=== PATIENT | female | born 1995 | race Two or more races ===

== ENCOUNTER 2020-06-08 20:13 | Emergency (ER) | payer SELFPAY ==
--- NOTE | 2020-06-08 22:21 | RADIOLOGY REPORT (SQ) ---
US PELVIS HISTORY: Vaginal bleeding. Early . COMPARISON: None. TECHNIQUE: Grayscale, color Doppler, and spectral Doppler ultrasound images of the pelvis were obtained. FINDINGS: The uterus is anteverted and measures 8.7 x 4.9 x 3.5 cm. There is no intrauterine gestational sac. The cervix is closed and measures 2.5 cm. The endometrium is 3 mm in thickness. Both ovaries are normal in size and contain normal follicles, with the right ovary measuring 2.7 x 2.1 cm and the left ovary measuring 3.7 x 2.9 cm. Normal color Doppler blood flow is seen in both ovaries. No free fluid. IMPRESSION: 1. No intrauterine is seen. Correlate with beta hCG values and consider short-term follow-up ultrasound imaging. 2. Normal ovaries.
[2020-06-08 23:09] LABS: ABSOLUTE EOSINOPHILS # (AUTO) 0.5 10^3/uL (0.0-0.6); ABSOLUTE LYMPHOCYTES (AUTO) 2.9 10^3/uL (0.5-4.7); ABSOLUTE MONOCYTES (AUTO) 0.7 10^3/uL (0.1-1.4); ABSOLUTE NEUT (AUTO) 6.5 10^3/uL (1.7-8.2); BASOPHILS % (AUTO) 0.3 % (0-2); EOSINOPHILS % (AUTO) 4.5 % (0-6); HEMATOCRIT 38.5 % (36.0-47.0); HEMOGLOBIN 13.1 g/dL (12.0-15.5); LYMPHOCYTES % (AUTO) 27.6 % (13-45); MEAN CORPUSCULAR HGB CONC 34.1 g/dL (32.0-36.0); MEAN CORPUSCULAR VOLUME 94 fl (80-97); MONOCYTES % (AUTO) 6.2 % (3-13); PLATELET COUNT 215 10^3/uL (150-450); RED CELL DISTRIBUTION WIDTH 12.6 % (11.5-14.0); SEGMENTED NEUTROPHILS % (AUTO) 61.4 % (42-78); TOTAL CELLS COUNTED % (AUTO) 100 %; WHITE BLOOD COUNT 10.7 10^3/uL (4.0-10.5)
[2020-06-08 23:27] LABS: ALKALINE PHOSPHATASE 55 U/L (38-126); ANION GAP 5 (5-19); ASPARTATE AMINO TRANSFERASE 24 U/L (14-36); BILIRUBIN,DIRECT 0.3 mg/dL (0.0-0.4); BILIRUBIN,TOTAL 0.4 mg/dL (0.2-1.3); BLOOD UREA NITROGEN 18 mg/dL (7-20); CALCIUM 9.3 mg/dL (8.4-10.2); CARBON DIOXIDE 28 mmol/L (22-30); CHLORIDE 107 mmol/L (98-107); GLUCOSE 102 mg/dL (75-110); POTASSIUM 3.7 mmol/L (3.6-5.0); TOTAL PROTEIN 6.9 g/dL (6.3-8.2)
[2020-06-09 00:26] LABS: APPEARANCE,URINE CLOUDY; BILIRUBIN,URINE NEGATIVE (NEGATIVE); COLOR,URINE YELLOW; GLUCOSE, URINE NEGATIVE (NEGATIVE); KETONES,URINE NEGATIVE (NEGATIVE); LEUKOCYTE ESTERASE,URINE LARGE (NEGATIVE); NITRITE,URINE NEGATIVE (NEGATIVE); PROTEIN,URINE 100 mg/dL (NEGATIVE); URINE SPECIFIC GRAVITY 1.027
[2020-06-09 00:56] VITALS: BP 117/75
--- NOTE | 2020-06-09 01:01 | ER Document Report ---
ED General - General Chief Complaint: Vaginal Bleeding Stated Complaint: VAGINAL BLEEDING/ Time Seen by Provider: 06/08/20 20:55 Mode of Arrival: Ambulatory Information source: Patient Notes: Patient is a 24-year-old female coming in today for vaginal bleeding. She had a positive test on Sunday. On Sunday she started having vaginal bleeding. Then Sunday had bleeding and today has almost stopped bleeding. No pain. No fevers or chills. No vomiting. Past Medical History - General Information source: Patient - Social History Smoking Status: Never Smoker Chew tobacco use (# tins/day): No Frequency of alcohol use: Rare Drug Abuse: None Family History: Reviewed & Not Pertinent Patient has homicidal ideation: No Review of Systems - Review of Systems Notes: Constitutional: No fevers. No chills. EENT: No eye redness. No eye pain. No ear pain. No sore throat. Cardiovascular: No chest pain. No palpitations. Respiratory: No cough. No shortness of breath. No respiratory distress. Gastrointestinal: No abdominal pain. No nausea, vomiting, or diarrhea. Genitourinary: Positive vaginal bleeding Musculoskeletal: Atraumatic. No swelling. No deformities. Skin: No rash or lesions. Lymphatic: No swollen lymph nodes. Neurologic: No headache. No syncope. Psychiatric: No suicidal or homicidal ideation. Physical Exam - Vital signs Vitals: Temp Pulse Resp BP Pulse Ox 98.2 F 84 16 111/66 99 06/08/20 20:17 06/08/20 20:17 06/08/20 20:17 06/08/20 20:17 06/08/20 20:17 - Notes Notes: General: Well-developed, well-nourished. In no acute distress. Non-toxic appearing. Cardiac: Well-perfused. Regular rate and rhythm. No murmurs, rubs, or gallops. Pulmonary: No respiratory distress. No cyanosis. Bilateral lung fiels are clear to auscultation. Abdominal: Non-distended. Non-rigid. Bowels sounds are present in all four quadrants. No guarding or rebound. HEENT: Head is atraumatic. Conjunctivae not reddened. No tearing. PERRL. EOMI. Orbits atraumatic. No periorbital swelling or erythema. Oropharynx is without erythema, swelling, or exudates. Neck: Supple. No adenopathy. No meningismus. Dermatologic: Warm with good turgor. No rash. Atraumatic. Chest: Atraumatic. No chest wall tenderness to palpation. Musculoskeletal: Moves all extremities well. No range of motion deficits. no muscular or joint tenderness. No paraspinal muscle tenderness. no midline spinal tenderness or step-off. Genitourinary: Examination deferred Neurologic: No gross neurologic deficits. Psychiatric: Normal mood. Course - Re-evaluation Re-evalutation: 06/09/20 00:59 Patient is O+ therefore no need for RhoGam. Beta hCG is negative here. No evidence of intrauterine . Patient states that she is barely having any bleeding at this point. Sounds like a spontaneous . Patient is content with the information given. Will discharge - Vital Signs Vital signs: Temp Pulse Resp BP Pulse Ox 97.9 F 68 16 117/75 100 06/09/20 00:55 06/09/20 00:55 06/09/20 00:55 06/09/20 00:55 06/09/20 00:55 - Laboratory Result Diagrams: 06/08/20 22:54 06/08/20 22:54 Laboratory results interpreted by me: 06/08/20 06/08/20 22:54 23:24 WBC 10.7 H Urine Protein 100 H Urine Blood MODERATE H Urine Urobilinogen 2.0 H Ur Leukocyte Esterase LARGE H Discharge - Discharge Clinical Impression: Spontaneous miscarriage Condition: Good Disposition: HOME, SELF-CARE Instructions: Miscarriage ([facility]) Referrals: EDWAR SHAH MD [ACTIVE STAFF] - Follow up as needed
== END 2020-06-09 01:25 | disposition home or self-care (01) ==
LOC: ER 20:13
DX: O03.9 Complete or unspecified spontaneous abortion without complication (principal)
CPT/HCPCS: 36415; 76817; 80053; 81001; 84702; 85025; 86900; 86901; 93976; 99284

== ENCOUNTER 2020-10-12 08:13 | Emergency (ER) | payer BC, MEDICAID ==
--- NOTE | 2020-10-12 10:09 | RADIOLOGY REPORT (SQ) ---
EXAM DESCRIPTION: U/S OB TRANSVAGINAL W/O DOP IMAGES COMPLETED DATE/TIME: 10/12/2020 9:58 am REASON FOR STUDY: preg/bleeding COMPARISON: None. TECHNIQUE: Transvaginal static and realtime grayscale images acquired of the pelvis. Additional angela cted spectral and color Doppler images recorded. All images stored on PACs. CLINICAL AGE: 5 week 0 day. BHCG: Not yet obtained. LIMITATIONS: None. FINDINGS: UTERUS: No visualized intrauterine . There are small fluid collections in the en dometrial cavity. Cannot exclude early gestational sac. RIGHT ADNEXA: Normal ovary with normal vascular flow. No adnexal free fluid. 1.5 cm cyst. LEFT ADNEXA: Normal ovary with normal vascular flow. No adnexal free fluid. No adnexal masses. FREE FLUID: None. OTHER: No other significant finding. IMPRESSION: NO VISUALIZED INTRA- OR EXTRAUTERINE . bHCG LEVEL NOT AVAILABLE FOR CORRELATION WITH US FINDINGS. ECTOPIC CANNOT BE EXCLUDED. FOLLOW-UP ULTRASOUND AND SERIAL BHCG LEVELS STRONGLY RECOMMENDED TO ACCURATELY ASSESS STATU S. TECHNICAL DOCUMENTATION: JOB ID: [id number] [employer]- All Rights Reserved Reading location - IP/workstation name: [email or web address]
[2020-10-12 10:33] LABS: ABSOLUTE EOSINOPHILS # (AUTO) 0.4 10^3/uL (0.0-0.6); ABSOLUTE MONOCYTES (AUTO) 0.4 10^3/uL (0.1-1.4); ABSOLUTE NEUT (AUTO) 4.1 10^3/uL (1.7-8.2); BASOPHILS % (AUTO) 0.7 % (0-2); HEMOGLOBIN 13.1 g/dL (12.0-15.5); MEAN CORPUSCULAR HEMOGLOBIN 30.4 pg (27.0-33.4); MEAN CORPUSCULAR HGB CONC 33.5 g/dL (32.0-36.0); MEAN CORPUSCULAR VOLUME 91 fl (80-97); MONOCYTES % (AUTO) 6.2 % (3-13); PLATELET COUNT 238 10^3/uL (150-450); RED CELL DISTRIBUTION WIDTH 12.6 % (11.5-14.0); SEGMENTED NEUTROPHILS % (AUTO) 58.1 % (42-78); TOTAL CELLS COUNTED % (AUTO) 100 %
[2020-10-12 10:54] LABS: ALBUMIN 3.9 g/dL (3.5-5.0); ALKALINE PHOSPHATASE 54 U/L (38-126); ANION GAP 5 (5-19); ASPARTATE AMINO TRANSFERASE 37 U/L (14-36); BILIRUBIN,DIRECT 0.1 mg/dL (0.0-0.4); BILIRUBIN,TOTAL 0.6 mg/dL (0.2-1.3); BLOOD UREA NITROGEN 14 mg/dL (7-20); CALCIUM 9.3 mg/dL (8.4-10.2); CARBON DIOXIDE 24 mmol/L (22-30); CHLORIDE 107 mmol/L (98-107); GLUCOSE 89 mg/dL (75-110); POTASSIUM 4.5 mmol/L (3.6-5.0)
--- NOTE | 2020-10-12 11:43 | ER Document Report ---
ED General - General Chief Complaint: Vaginal Bleeding Stated Complaint: VAGINAL BLEEDING/ 5 WEELS PREG Time Seen by Provider: 10/12/20 09:00 Primary Care Provider: KEILA WEI [Primary Care Provider] - Follow up as needed Mode of Arrival: Ambulatory Information source: Patient - [facility] Notes: This patient is a G3, P1 who presents with vaginal bleeding. She states it is some spotting that she just noticed earlier this morning. States she has had some cramping in the lower back but otherwise no pain. She states that she is unsure exactly how far along she is in the . With think she is about 6 weeks. Patient denies any vomiting. She states the pain in the lower back is mild. It is cramping in sensation. Nothing makes it better or worse. No significant radiation of this pain. - Related Data Allergies/Adverse Reactions: No Known Allergies Allergy (Verified 10/12/20 08:34) Past Medical History - General Information source: Patient - Social History Smoking Status: Never Smoker Frequency of alcohol use: Occasional Drug Abuse: None Family History: Reviewed & Not Pertinent Review of Systems - Review of Systems Constitutional: denies: Chills, Fever Cardiovascular: denies: Chest pain, Palpitations Respiratory: denies: Cough, Short of breath -: Yes All other systems reviewed and negative Physical Exam - Vital signs Vitals: Temp Pulse Resp BP Pulse Ox 98.2 F 81 15 106/60 98 10/12/20 08:33 10/12/20 08:33 10/12/20 08:33 10/12/20 08:33 10/12/20 08:33 Interpretation: Normal - General General appearance: Appears well, Alert - HEENT Head: Normocephalic, Atraumatic Eyes: Normal Pupils: PERRL - Respiratory Respiratory status: No respiratory distress Chest status: Nontender Breath sounds: Normal Chest palpation: Normal - Cardiovascular Rhythm: Regular Heart sounds: Normal auscultation Murmur: No - Abdominal Inspection: Normal Distension: No distension Bowel sounds: Normal Tenderness: Nontender Organomegaly: No organomegaly - Back Back: Normal, Nontender - Extremities General upper extremity: Normal inspection, Nontender, Normal color, Normal ROM, Normal temperature General lower extremity: Normal inspection, Nontender, Normal color, Normal ROM, Normal temperature, Normal weight bearing. No: Flako's sign - Neurological Neuro grossly intact: Yes Cognition: Normal Orientation: AAOx4 Radha Coma Scale Eye Opening: Spontaneous Radha Coma Scale Verbal: Oriented Cheney Coma Scale Motor: Obeys Commands Radha Coma Scale Total: 15 Speech: Normal Motor strength normal: LUE, RUE, LLE, RLE Sensory: Normal - Psychological Associated symptoms: Normal affect, Normal mood - Skin Skin Temperature: Warm Skin Moisture: Dry Skin Color: Normal Course - Re-evaluation Re-evalutation: 10/12/20 11:42 Patient presents with vaginal spotting. She has a positive test with a beta of 869. She has no surgical abdominal signs and a nontender exam. She will be referred to OB in 2 days with a repeat beta. - Vital Signs Vital signs: Temp Pulse Resp BP Pulse Ox 98.2 F 81 15 106/60 98 10/12/20 08:33 10/12/20 08:33 10/12/20 08:33 10/12/20 08:33 10/12/20 08:33 - Laboratory Results Result Diagrams: 10/12/20 10:04 10/12/20 10:04 Laboratory Results Interpreted: 10/12/20 10:04 Sodium 136.4 L AST 37 H Beta HCG, Quant 894.09 H Critical Laboratory Results Reviewed: No Critical Results - Radiology Results Critical Radiology Results Reviewed: No Critical Results Discharge - Discharge Clinical Impression: Threatened in first trimester Condition: Stable Disposition: HOME, SELF-CARE Instructions: Threatened Miscarriage ([facility]) Additional Instructions: Please return here on to have a repeat beta-hCG drawn. [facility] will then go to [facility] for your follow-up appointment on after lab is [facility]. Please call [facility] the day to make the appointment for . Forms: Return to Work, Follow-Up Laboratory Testing Referrals: STARR VIZCARRA MD [ACTIVE STAFF] - 10/14/20
[2020-10-12 11:52] VITALS: BP 108/63
== END 2020-10-12 11:55 | disposition home or self-care (01) ==
LOC: ER 08:13
DX: O20.0 Threatened abortion (principal); O26.891 Other specified pregnancy related conditions, first trimester; R25.2 Cramp and spasm; Z3A.00 Weeks of gestation of pregnancy not specified
CPT/HCPCS: 36415; 76817; 80053; 84702; 85025; 99284